=== PATIENT | female | born 1995 | race Two or more races ===

== ENCOUNTER 2017-06-20 18:41 | Emergency (ER) | payer SELFPAY ==
[~2017-06-20] VITALS: Ht 154.9 cm; Wt 40.8 kg
[2017-06-20 19:43] VITALS: BP 136/90
== END 2017-06-20 20:58 | disposition home or self-care (01) ==
LOC: ER 18:45
DX: S39.012A Strain of muscle, fascia and tendon of lower back, initial encounter (principal); V49.59XA Passenger injured in collision with other motor vehicles in traffic accident, initial encounter; Y93.89 Activity, other specified; Y92.413 State road as the place of occurrence of the external cause; Y99.8 Other external cause status
CPT/HCPCS: A4606; Z7610